=== PATIENT | male | born 1940 | race African-American/Black ===

== ENCOUNTER 2017-10-07 06:49 | Day surgery (SDC) | payer MEDICARE, OTHER ==
[~2017-10-07] VITALS: Ht 182.9 cm; Wt 72.6 kg
[~2017-10-07 06:49] MED LIST: CARV12.545 PO; FURO40TA5 PO; LOSA50TA20 PO; MIRT15TA6 PO; TAMS0.4C31 PO
[2017-10-07] MEDS ORDERED: SKIN ADHESIVE 0.7 GM EA TOP ONE ×2 (07:14→10:05)
[2017-10-07] MEDS ORDERED: BUPIVACAINE HCL 0.5% (5MG/ML) 50ML ONE (07:15)
[2017-10-07 07:33] LABS: CLARITY URINE CLEAR (CLEAR); COLOR URINE YELLOW (YELLOW); KETONES URINE NEGATIVE (NEGATIVE); LEUKOCYTE ESTERASE URINE NEGATIVE (NEGATIVE); NITRITE URINE NEGATIVE (NEGATIVE); OCCULT BLOOD URINE 1+ (NEGATIVE); PROTEIN URINE TRACE (NEGATIVE); SPECIFIC GRAVITY URINE 1.023 (1.005-1.030)
[2017-10-07] MEDS ORDERED: LACTATED RINGERS 1,000 ML IV SCH (07:40)
[2017-10-07] MEDS ORDERED: LIDOCAINE HCL 1% 20ML VIAL (Pyxis) INJ ONE (08:34)
[2017-10-07] MEDS ORDERED: ROCURONIUM BROMIDE 10MG/ML VIAL 5ML IV ONE (08:35)
[2017-10-07] MEDS ORDERED: FENTANYL CITRATE/PF 50MCG/ML 2ML VIAL ONE (08:40)
[2017-10-07] MEDS ORDERED: EPHEDRINE SULFATE 50MG/ML VIAL ONE (08:47)
[2017-10-07] MEDS ORDERED: SODIUM CHLORIDE 0.9% 10ML VIAL ONE ×2 (08:47→09:38)
[2017-10-07] MEDS ORDERED: CEFAZOLIN SODIUM 1000MG/VIAL ONE (08:47)
[2017-10-07] MEDS ORDERED: BUPIVACAINE HCL 0.5% 125 ML in ON-Q PM012 DRUG DELIV DEVICE 1 EA IR NR (08:59)
[2017-10-07] MEDS ORDERED: DEXAMETHASONE 4MG/ML 1ML VIAL ONE (09:26)
[2017-10-07] MEDS ORDERED: ONDANSETRON HCL 4MG/2ML VIAL ONE (09:27)
[2017-10-07] MEDS ORDERED: METOCLOPRAMIDE HCL 10MG/2ML VIAL ONE (09:27)
[2017-10-07] MEDS ORDERED: PHENYLEPHRINE HCL 10 MG/ML 1ML (IV VIAL) IV ONE (09:38)
[2017-10-07] MEDS ORDERED: NEOSTIGMINE METHYLSULFATE 1MG/ML 10 ML VIAL ONE (09:56)
[2017-10-07] MEDS ORDERED: GLYCOPYRROLATE 0.2 MG/ML 2ML VIAL ONE (09:56)
[2017-10-07] MEDS: MORPHINE SULFATE 2 MG/ML CPJ (NOT FOR IM USE) IV PRN ×2 (11:26→12:06)
[2017-10-07 12:06] VITALS: BP 134/77
== END 2017-10-07 15:45 | disposition home or self-care (01) ==
LOC: OR 06:49
PROVIDERS: ATTEND Surgery
DX: K40.90 Unilateral inguinal hernia, without obstruction or gangrene, not specified as recurrent (principal); I10 Essential (primary) hypertension; I42.8 Other cardiomyopathies; I73.89 Other specified peripheral vascular diseases; N40.0 Benign prostatic hyperplasia without lower urinary tract symptoms; M19.90 Unspecified osteoarthritis, unspecified site; J44.9 Chronic obstructive pulmonary disease, unspecified; Z87.891 Personal history of nicotine dependence; Z98.890 Other specified postprocedural states
CPT/HCPCS: 49505; 71010; 81001; A4216; C1781; G0168; J0171; J0690; J1100; J2270; J2370; J2405; J2710; J2765; J3010; J3490; J7120